=== PATIENT | male | born 1990 | race African-American/Black ===

== ENCOUNTER 2024-08-13 10:12 | Emergency (ER) | payer SELFPAY ==
[~2024-08-13] VITALS: Ht 172.7 cm; Wt 82.0 kg
[2024-08-13 10:26] VITALS: BP 97/68; TEMP 36.8; O2SAT 100
[2024-08-13 10:30] VITALS: PULSE 88; RESP 18; O2SAT 98
[2024-08-13] MEDS ORDERED: CARB-274 EACH EAR (10:47)
== END 2024-08-13 10:59 | disposition home or self-care (01) ==
LOC: ER 10:12
DX: H61.23 Impacted cerumen, bilateral (principal); Z68.27 Body mass index [BMI] 27.0-27.9, adult
CPT/HCPCS: 99282